=== PATIENT | female | born 1965 | race African-American/Black ===

== ENCOUNTER 2017-01-28 18:35 | Emergency (ER) | payer MEDICAID, OTHER ==
[~2017-01-28] VITALS: Ht 165.1 cm; Wt 95.0 kg
[~2017-01-28 18:35] MED LIST: IBUP600T26 PO; METH750T2 PO
[2017-01-28 18:39] VITALS: BP 119/81; PULSE 97; RESP 20; TEMP 98.8; O2SAT 96
--- NOTE | 2017-01-28 19:20 | PD ---
HPI Chief Complaint: Cold / Flu Symptoms Time Seen by Provider: 19:20 Travel History International Travel<30 days: No Contact w/Intl Traveler<30days: No Traveled to known affect area: No History of Present Illness HPI 51-year-old female presents to the ED for evaluation of 1 week history of chills , headache, rhinorrhea, sinus congestion, sore throat, nonproductive cough, nausea, vomiting and diarrhea. She has not measured a fever at home. She states that her son was recently diagnosed with the flu and prescribed Tamiflu. She denies nausea on presentation. She has been treating by drinking orange juice. Denies chronic health problems, takes no daily medications. NKDA. PFSH Past Medical History Blood Disorders: No Cancer: No Cardiovascular Problems: No Cerebrovascular Accident: No Diabetes: No Diminished Hearing: No Endocrine: No GERD: Yes Genitourinary: Yes (UTI'S IN PAST) Hiatal Hernia: Yes Immune Disorder: No Musculoskeletal: Yes (chronic back and left shoulder pain) Neurologic: No Psychiatric: Yes Reproductive: Yes Respiratory: No Myocardial Infarction: No Influenza Vaccination: No ?: Not LMP: 2 DAYS Menopausal: No : 1 Para: 1 Ovarian Cysts: Yes ((R) ovary removed) Past Surgical History Abdominal Surgery: Yes (Hernia's) AICD: No Appendectomy: Yes Arteriovenous Shunt: No Section: Yes Gynecologic Surgery: Yes (R OVARY 1983) Insulin Pump: No Joint Replacement: No Pacemaker: No Tonsillectomy: Yes Other Surgery: Yes Social History Alcohol Use: Yes ("Maybe 4 times/month") Tobacco Use: No Substance Use: No Allergies-Medications (Allergen,Severity, Reaction): Coded Allergies: E-Mycin (Verified Adverse Reaction, Mild, ABD PAIN, 01/28/17) Reported Meds & Prescriptions Reported Meds & Active Scripts Active Tessalon Perles (Benzonatate) 100 Mg Cap 100 Mg PO HS PRN Zofran Odt (Ondansetron Odt) 4 Mg Tab 4 Mg SL Q12HR PRN Review of Systems Except as stated in HPI: all other systems reviewed are Neg Physical Exam Narrative GENERAL: Well-nourished, well-developed nontoxic appearing black female in no acute distress. SKIN: Warm and dry. HEAD: Normocephalic. Atraumatic. EYES: No scleral icterus. No injection or drainage. PERRLA. EOMI. ENT: Pearly spencer tympanic membranes bilaterally. Nasal mucosa is moist. Oropharynx without erythema, edema or exudate. NECK: Supple, trachea midline. No JVD or lymphadenopathy. CARDIOVASCULAR: Regular rate and rhythm without murmurs, gallops, or rubs. 2+ DP and radial pulses bilaterally. RESPIRATORY: Breath sounds clear and equal bilaterally. No accessory muscle use. GASTROINTESTINAL: Abdomen soft, non-tender, nondistended. + Bowel sounds MUSCULOSKELETAL: No cyanosis, or edema. Patient is ambulatory and moves extremities spontaneously. BACK: Nontender without obvious deformity. No CVA tenderness. Data Data Last Documented VS Vital Signs Date Time Temp Pulse Resp B/P Pulse Ox O2 Delivery O2 Flow Rate FiO2 01/28/17 18:39 98.8 97 20 119/81 96 Orders Influenzae A/B Antigen (01/28/17 18:53) MDM Medical Decision Making Medical Screen Exam Complete: Yes Emergency Medical Condition: Yes Differential Diagnosis Influenza versus viral syndrome versus seasonal allergies versus gastroenteritis versus other Narrative Course 51-year-old female presents to the ED for evaluation of 1 week history of chills , headache, rhinorrhea, sinus congestion, sore throat, nonproductive cough, nausea, vomiting and diarrhea. She has not measured a fever at home. She states that her son was recently diagnosed with the flu. Vitals reviewed. Patient afebrile on presentation. Physical exam reveals a nontoxic-appearing black female in no acute distress. ENT exam is unremarkable. Chest clear to auscultation bilaterally. Abdomen soft, nontender. Influenza swab negative. This is viral syndrome. Patient is instructed to rest, hydrate, treat symptomatically. She is prescribed a few doses of Zofran and Tessalon Perles. She is instructed to follow-up with the primary care provider. She indicated understanding of the instructions and is agreeable to the care plan. Patient is stable and discharged home. Diagnosis Primary Impression: Viral syndrome Referrals: Primary Care Physician Patient Instructions: General Instructions, Viral Syndrome (ED) Additional Instructions: Rest, hydrate. Drink plenty of fluids such as sports drinks, Pedialyte, popsicles, clear broth. Zofran as prescribed for continued nausea and vomiting. Tessalon Perles at bedtime to reduce cough and support a good nights sleep. Alternating Motrin and Tylenol every 4-6 hours as needed for headaches, fevers and body aches. Increase handwashing frequently to avoid the spread of the virus to other family members and the community. Disinfect commonly touched surfaces such as light switches, microwaves, remote controls. Replace toothbrush at the end of this illness. Follow-up with the primary care provider this week. Return to the ED for any urgent or emergent medical condition. Med/Other Pt SpecificInfo: Prescription(s) given Scripts Benzonatate (Tessalon Perles)100 Mg [id number] Mg PO HS PRN (COUGH) #10 CAP Ref 0 Prov:Morteza Martino MD 01/28/17 Ondansetron Odt (Zofran Odt)4 Mg Tab4 Mg SL Q12HR PRN (Nausea/Vomiting) #5 TAB Ref 0 Prov:Morteza Martino MD 01/28/17 Disposition: 01 DISCHARGE HOME Condition: Stable Marguerite Raines Jan 28, 2017 19:20
[2017-01-28] MEDS ORDERED: ZOFR4TAB3 SL (19:32)
[2017-01-28] MEDS ORDERED: BENZ100 PO (19:32)
== END 2017-01-28 19:47 | disposition home or self-care (01) ==
LOC: PHEFT 18:35
DX: B34.9 Viral infection, unspecified (principal); R11.2 Nausea with vomiting, unspecified; R51 Headache; J02.9 Acute pharyngitis, unspecified; R19.7 Diarrhea, unspecified; K21.9 Gastro-esophageal reflux disease without esophagitis
CPT/HCPCS: 87804; 99283

== ENCOUNTER 2017-03-22 16:58 | Emergency (ER) | payer SELFPAY ==
[~2017-03-22] VITALS: Ht 165.1 cm; Wt 100.0 kg
[~2017-03-22 16:58] MED LIST changes: +BENZ100 PO; -IBUP600T26 PO; -METH750T2 PO; +ZOFR4TAB3 SL
[2017-03-22 17:08] VITALS: BP 139/90; PULSE 70; RESP 16; TEMP 98.5; O2SAT 100
[2017-03-22] MEDS ORDERED: TRAM50TA PO (17:19)
[2017-03-22] MEDS ORDERED: CYCL1TAB29 PO (17:19)
[2017-03-22] MEDS ORDERED: ORPHENADRINE INJ 60 MG/2 ML AMP IM ONE (17:30)
[2017-03-22] MEDS ORDERED: KETOROLAC TROMETHAMINE 60 MG/2 ML (IM) VIAL IM ONE (17:30)
[2017-03-22] MEDS ORDERED: ULTR50TA5 PO (17:31)
--- NOTE | 2017-03-22 17:32 | PD ---
HPI Chief Complaint: Pain: Acute or Chronic Time Seen by Provider: 17:19 Travel History International Travel<30 days: No Contact w/Intl Traveler<30days: No Traveled to known affect area: No History of Present Illness HPI PATIENT HAS A CHRONIC CONDITION, THOUGH NOT KNOWN WHAT THE DIAGNOSIS IS, UNDER EVALUATION FOR LUPUS/AUTOIMMUNE IN WHICH CASE SHE IS COMPLETING EVALUATION HOWEVER TODAY SHE HAS A HEAVY EXACERBATION PFSH Past Medical History Blood Disorders: No Cancer: No Cardiovascular Problems: No Cerebrovascular Accident: No Diabetes: No Diminished Hearing: No Endocrine: No GERD: Yes Genitourinary: Yes (UTI'S IN PAST) Hiatal Hernia: Yes Immune Disorder: No Medical other: Yes (PT CURRENTLY BEING WORKED UP FOR POSSIBLE AUTOIMMUNE) Musculoskeletal: Yes (chronic back and left shoulder pain) Neurologic: No Psychiatric: Yes Reproductive: Yes Respiratory: No Myocardial Infarction: No Tetanus Vaccination: > 5 Years Influenza Vaccination: Yes ?: Not Menopausal: No : 1 Para: 1 Ovarian Cysts: Yes ((R) ovary removed) Past Surgical History Abdominal Surgery: Yes (Hernia's) AICD: No Appendectomy: Yes Arteriovenous Shunt: No Section: Yes Gynecologic Surgery: Yes (R OVARY 1983) Insulin Pump: No Joint Replacement: No Pacemaker: No Tonsillectomy: Yes Other Surgery: Yes Social History Alcohol Use: Yes ("Maybe 4 times/month") Tobacco Use: No Substance Use: No Allergies-Medications (Allergen,Severity, Reaction): Coded Allergies: E-Mycin (Verified Adverse Reaction, Mild, ABD PAIN, 03/22/17) Reported Meds & Prescriptions Reported Meds & Active Scripts Active Ultram (Tramadol HCl) 50 Mg Tab 50 Mg PO Q6H PRN Reported Tramadol (Tramadol HCl) 50 Mg Tab 50 Mg PO Q8H PRN Flexeril (Cyclobenzaprine HCl) 10 Mg Tab 10 Mg PO TID Review of Systems Except as stated in HPI: all other systems reviewed are Neg Physical Exam Narrative GENERAL: SKIN: Warm and dry. HEAD: Atraumatic. Normocephalic. EYES: Pupils equal and round. No scleral icterus. No injection or drainage. ENT: No nasal bleeding or discharge. Mucous membranes pink and moist. NECK: Trachea midline. No JVD. CARDIOVASCULAR: Regular rate and rhythm. RESPIRATORY: No accessory muscle use. Clear to auscultation. Breath sounds equal bilaterally. GASTROINTESTINAL: Abdomen soft, non-tender, nondistended. Hepatic and splenic margins not palpable. MUSCULOSKELETAL: Extremities without clubbing, cyanosis, or edema. No obvious deformities. NEUROLOGICAL: Awake and alert. No obvious cranial nerve deficits. Motor grossly within normal limits. Five out of 5 muscle strength in the arms and legs. Normal speech. PSYCHIATRIC: Appropriate mood and affect; insight and judgment normal. Data Data Last Documented VS Vital Signs Date Time Temp Pulse Resp B/P Pulse Ox O2 Delivery O2 Flow Rate FiO2 03/22/17 17:08 98.5 70 16 139/90 100 Orders Urinalysis - C+S If Indicated (03/22/17 17:24) Group A Rapid Strep Screen (03/22/17 17:24) Influenzae A/B Antigen (03/22/17 17:24) Ketorolac Inj (Toradol Inj) (03/22/17 17:30) Orphenadrine Inj (Norflex Inj) (03/22/17 17:30) Strep Culture (Group A) (03/22/17 17:30) MDM Medical Decision Making Medical Screen Exam Complete: Yes Emergency Medical Condition: Yes Medical Record Reviewed: Yes Differential Diagnosis R/O FLU, STREP OR UTI IF ALL NEGATIVE WILL BE TREATED ACUTE ON CHRONIC PAIN Narrative Course SEE ABOVE Diagnosis Primary Impression: ACUTE ON CHRONIC PAIN Patient Instructions: General Instructions Med/Other Pt SpecificInfo: Prescription(s) given Scripts Tramadol (Ultram)50 Mg Tab50 Mg PO Q6H PRN (PAIN) #21 TAB Ref 0 Prov:Solitario Cornell MD 03/22/17 Disposition: 01 DISCHARGE HOME Condition: Stable Solitario Cornell MD Mar 22, 2017 17:32
[2017-03-22 18:55] VITALS: BP 135/77; PULSE 52; RESP 16; O2SAT 99
[2017-03-22 18:57] LABS: BLOOD, URINE NEG (NEG); GLUCOSE,URINE NEG (NEG); KETONE, URINE NEG (NEG); NITRITE,URINE NEG (NEG)
[2017-03-22 19:20] VITALS: RESP 16
[2017-03-22 19:21] LABS: URINE COLOR YELLOW (YELLW/STRAW)
[2017-03-22 19:22] LABS: MUCUS URINE OCC /lpf (OCC)
[2017-03-22 19:23] LABS: SQUAMOUS EPITHELIAL CELL URINE 0-5 /hpf (0-5)
[2017-03-22 19:24] LABS: COMMENT (UR) CULT NOT INDICATED; CULTURE IF INDICATED CULT NOT INDICATED; WBC, URINE 0-2 /hpf (0-5)
== END 2017-03-22 19:40 | disposition home or self-care (01) ==
LOC: PHED 16:58
DX: R52 Pain, unspecified (principal); G89.29 Other chronic pain; Z87.19 Personal history of other diseases of the digestive system; Z87.440 Personal history of urinary (tract) infections; Z87.39 Personal history of other diseases of the musculoskeletal system and connective tissue; Z86.59 Personal history of other mental and behavioral disorders; Z87.42 Personal history of other diseases of the female genital tract
CPT/HCPCS: 81001; 87081; 87804; 87880; 96372; 99284; J1885; J2360

== ENCOUNTER 2018-04-06 16:46 | Emergency (ER) | payer MEDICAID ==
[~2018-04-06 16:46] MED LIST changes: -BENZ100 PO; +CYCL10TA PO; +TRAM50 PO; +TRAM50TA PO; -ZOFR4TAB3 SL
[2018-04-06 17:09] VITALS: BP 141/81; PULSE 74; RESP 18; TEMP 97.8; O2SAT 99
[2018-04-06] MEDS ORDERED: ORPHENADRINE INJ 60 MG/2 ML AMP IM ONE (17:30)
[2018-04-06] MEDS ORDERED: KETOROLAC TROMETHAMINE 60 MG/2 ML (IM) VIAL IM ONE (17:30)
--- NOTE | 2018-04-06 17:30 | PD ---
HPI Chief Complaint: Musculoskeletal Complaint Time Seen by Provider: 17:17 Travel History International Travel<30 days: No Contact w/Intl Traveler<30days: No Traveled to known affect area: No History of Present Illness HPI 52 year old female presents to the emergency department for evaluation of right shoulder pain that started yesterday. She denies any traumatic injury. She states the pain is 7/10, aching and throbbing at rest. The pain increases to a 10/10 with movement of the right shoulder. She reports h/o rotator cuff injury in the past. She states she is prescribed Meloxicam and Tramadol for chronic pain, but needs a refill and has not taken anything for pain. She also states she has a RX for Flexeril, but hasn't taken it in 2 days. No chest pain or SOB. No fevers/chills. No other symptoms/complaints. Mild severity. PFSH Past Medical History Blood Disorders: No Cancer: No Cardiovascular Problems: No Cerebrovascular Accident: No Diabetes: No Diminished Hearing: No Endocrine: No GERD: Yes Genitourinary: Yes (UTI'S IN PAST) Hiatal Hernia: Yes Immune Disorder: No Musculoskeletal: Yes (chronic back and left shoulder pain) Neurologic: No Psychiatric: Yes Reproductive: Yes Respiratory: No Myocardial Infarction: No Tetanus Vaccination: > 5 Years Influenza Vaccination: No ?: Not Menopausal: No : 1 Para: 1 Ovarian Cysts: Yes ((R) ovary removed) Past Surgical History Abdominal Surgery: Yes (Hernia's) AICD: No Appendectomy: Yes Arteriovenous Shunt: No Section: Yes Gynecologic Surgery: Yes (R OVARY 1983) Insulin Pump: No Joint Replacement: No Pacemaker: No Tonsillectomy: Yes Other Surgery: Yes Social History Alcohol Use: Yes ("Maybe 4 times/month") Tobacco Use: No Substance Use: No Allergies-Medications (Allergen,Severity, Reaction): Coded Allergies: erythromycin base (Unverified Adverse Reaction, Mild, ABD PAIN, 06/02/17) Reported Meds & Prescriptions Reported Meds & Active Scripts Active Reported Tramadol (Tramadol HCl) 50 Mg Tab 50 Mg PO Q8H PRN Flexeril (Cyclobenzaprine HCl) 10 Mg Tab 10 Mg PO TID Review of Systems Except as stated in HPI: all other systems reviewed are Neg Physical Exam Narrative GENERAL: Well-nourished, well-developed female patient, ambulatory. Afebrile. SKIN: Focused skin assessment warm/dry. No erythema or warmth over right shoulder. HEAD: Normocephalic. Atraumatic. EYES: No scleral icterus. No injection or drainage. NECK: Supple, trachea midline. No JVD or lymphadenopathy. CARDIOVASCULAR: Regular rate and rhythm without murmurs, gallops, or rubs. Right radial pulse is 2+. RESPIRATORY: No accessory muscle use. MUSCULOSKELETAL: No cyanosis, or edema. No reproducible tenderness over right shoulder with palpation. She has full ROM of the right shoulder. BACK: Nontender without obvious deformity. No CVA tenderness. Data Data Last Documented VS Vital Signs Date Time Temp Pulse Resp B/P (MAP) Pulse Ox O2 Delivery O2 Flow Rate FiO2 04/06/18 17:09 97.8 74 18 141/81 (101) 99 Orders Orders Shoulder, Complete (>2vws) (04/06/18 ) Ketorolac Inj (Toradol Inj) (04/06/18 17:30) Orphenadrine Inj (Norflex Inj) (04/06/18 17:30) MDM Medical Decision Making Medical Screen Exam Complete: Yes Emergency Medical Condition: Yes Medical Record Reviewed: Yes Interpretation(s) Last Impressions Shoulder X-Ray 04/06/18 0000 Signed Impressions: CONCLUSION: 1. Very minimal AC joint degenerative changes. 2. Otherwise, unremarkable shoulder radiographs. Differential Diagnosis tendinitis vs. sprain vs. spasm vs. fracture Narrative Course 52 year old female presents to the emergency department for evaluation of right shoulder pain. Patient is given Toradol 60 mg IM, Norflex 60 mg IM for pain. X -ray of the right shoulder is ordered and pending. X-ray of the right shoulder shows no acute bony injury. Patient is provided a sling. However, she is instructed that she must do range of motion exercises to prevent a frozen shoulder. She agrees to this. She will be discharged prescription for diclofenac for pain. The patient was discharged in stable condition with instructions, including return instructions and follow up instructions. Diagnosis Primary Impression: Right shoulder pain Qualified Codes: M25.511 - Pain in right shoulder Referrals: Primary Care Physician call for appointment Patient Instructions: General Instructions, Shoulder Pain (ED) Departure Forms: Tests/Procedures, Work Release Enter return to work date: Apr 09, 2018 Additional Instructions: Take diclofenac as directed as needed with food for pain. Do not take with other anti-inflammatories including ibuprofen and naproxen. Ice for 20 minutes 4-5 times daily. Wear sling as needed. However, you must do range of motion exercises to prevent a frozen shoulder. Follow-up with a primary care physician. Return to the emergency department for any acute worsening of symptoms. Med/Other Pt SpecificInfo: Prescription(s) given Scripts Diclofenac Potassium (Diclofenac Potassium) 50 Mg Tab 50 MG PO TID Y for PAIN SCALE 1 TO 10, #21 TAB 0 Refills Prov: Geraldine Keller 04/06/18 Disposition: 01 DISCHARGE HOME Condition: Stable Geraldine Keller Apr 06, 2018 17:30
--- NOTE | 2018-04-06 18:01 | RADRPT ---
EXAM DATE: 04/06/2018 5:57 PM EDT AGE/SEX: 52 years / Female INDICATIONS: Right shoulder pain. No known injury. CLINICAL DATA: This is the patient's initial encounter. Patient reports that signs and symptoms have been present for 3 days and indicates a pain score of 8/10. MEDICAL/SURGICAL HISTORY: None. None. COMPARISON: No prior exams available for comparison. FINDINGS: Bony structures are intact and in normal alignment. Joints are intact without dislocation. Minimal d egenerative changes about the AC joint. Osseous density is normal. Soft tissues are unremarkable. N o radiopaque foreign bodies seen. CONCLUSION: 1. Very minimal AC joint degenerative changes. 2. Otherwise, unremarkable shoulder radiographs. Electronically signed by: Brooks Pablo MD 04/06/2018 6:00 PM EDT
[2018-04-06] MEDS ORDERED: DICL50TA PO (18:28)
[2018-04-06 18:58] VITALS: BP 138/68
== END 2018-04-06 18:59 | disposition home or self-care (01) ==
LOC: PHEFT 16:46
DX: M25.511 Pain in right shoulder (principal); G89.29 Other chronic pain; M54.9 Dorsalgia, unspecified; K21.9 Gastro-esophageal reflux disease without esophagitis
CPT/HCPCS: 73030; 96372; 99283; J1885; J2360